=== PATIENT | male | born 1990 | race Caucasian/White ===

== ENCOUNTER → 2017-05-10 | Outpatient (CLI) | payer OTHER ==
--- NOTE | 2017-05-10 17:32 | REP ---
LEFT ANKLE, FOUR VIEWS: HISTORY: Sprain. There is no acute fracture or dislocation. The joint space is normal in appearance. IMPRESSION: There is no acute fracture or dislocation. Signed by Best Cramer MD 05/10/2017 05:38 P
== END ==
LOC: M WUC 17:09
PROVIDERS: ATTEND Physician Assistant
DX: S93.422A Sprain of deltoid ligament of left ankle, initial encounter (principal); X58.XXXA Exposure to other specified factors, initial encounter; Y92.89 Other specified places as the place of occurrence of the external cause; Y93.89 Activity, other specified; Y99.8 Other external cause status; R30.0 Dysuria

== ENCOUNTER → 2017-06-10 | Outpatient (REF) | payer OTHER | LOC: M SMT 13:12 | PROVIDERS: ATTEND Nurse Practitioner Women's Health | DX: R10.9 Unspecified abdominal pain (principal) ==

== ENCOUNTER → 2017-06-18 | Outpatient (CLI) | payer OTHER ==
--- NOTE | 2017-06-18 20:08 | REP ---
CT of the abdomen pelvis without IV or bowel contrast: There are no comparisons. The visualized lung hayden are unremarkable. The unenhanced hepatic parenchyma, gallbladder, pancreas and spleen are unremarkable. The adrenals are unremarkable. The unenhanced kidneys are unremarkable. There is no hydronephrosis. There are no renal calculi. There are no ureteral calculi. There are no bladder calculi. The abdominal aorta is unremarkable. The bowel and mesentery are unremarkable. Pelvis: The appendix is unremarkable except for appendicoliths. There is no adenopathy or ascites. The bladder is unremarkable. The pelvic bowel loops are unremarkable. Impression: Essentially negative CT study of the abdomen and pelvis without IV or bowel contrast. . There are appendicoliths, the appendix is otherwise unremarkable. Signed by Owen Keith MD 06/18/2017 07:59 P
== END ==
LOC: M RAD 18:12
PROVIDERS: ATTEND Nurse Practitioner Women's Health
DX: R10.9 Unspecified abdominal pain (principal)

== ENCOUNTER → 2017-07-26 | Outpatient (CLI) | payer OTHER ==
[~2017-07-26] MED LIST: CONRAY-43 43% 50ML VIAL (Q9960) As Ordered ONE; PROHANCE 279.3MG/ML 15ML VIAL (A9576) As Ordered ONE
--- NOTE | 2017-07-26 10:45 | REP ---
MR arthrography right shoulder: with pre and post intra-articular gadolinium enhanced saline injected imaging: History: Right anterior shoulder pain. No comparison imaging. Technique: The injection procedure is performed and dictated separately. Pre and post intra-articular gadolinium enhanced saline injected imaging is acquired. Imaging planes include axial, oblique coronal, oblique sagittal and ABER projection images. T1 T2-weighted scans are included with and without fat saturation. MRI findings: preinjection MR imaging of the right shoulder shows normal alignment of the glenohumeral and acromioclavicular articulations. Cortical and medullary bone signal intensity are felt to be normal. There is a small amount of subcortical cyst formation in the superolateral humeral head which can be a feature of impingement. Indeed the preinjection imaging shows some swelling and increased signal intensity in the supraspinatus tendon consistent with tendonitis tendinosis change. There is a linear pattern of increased T2 signal intensity in the distal infraspinatus tendon. Postinjection MR imaging shows good filling and enhancement of the right glenohumeral articulation. The anterior and the posterior labrum appear intact. No anterior labral tear is seen on ABER projection images. No loose body is appreciated. Oblique coronal T1-weighted scans show no evidence of enhancement within or beyond the supraspinatus tendon to suggest a complete rotator cuff tear. The biceps tendon is seen in the bony bicipital groove. Infraspinatus and subscapularis tendons are otherwise intact. Impression: Supraspinatus tendinosis change. Infraspinatus tendinosis and possible partial thickness linear cuff tear. Otherwise unremarkable MR arthrogram right shoulder. Signed by Arben Campbell MD 07/26/2017 01:12 P
--- NOTE | 2017-07-26 16:50 | REP ---
Procedure: Right shoulder arthrogram The procedure was performed under the direct supervision of Dr. Campbell. History: Right shoulder pain The benefits and risks including but not limited to pain, infection, bleeding and anaphylaxis were explained to the patient and informed consent was obtained. Technique: The right glenohumeral joint space was localized using fluoroscopic guidance. The skin was prepped and draped in a sterile fashion. 1% lidocaine was used as a local anesthetic. Using fluoroscopic guidance a 22 gauge spinal needle was inserted and advanced into the joint. 0.5 ml of Conray 43 was injected to verify placement. 11 ml of a solution containing 20 ml of sterile saline and 0.15 ml of ProHance was injected into the joint. The needle was removed and the patient was taken to MRI for postprocedural imaging. The the patient tolerated the procedure well and there were no immediate complications. less than 6 seconds of fluoro time was utilized for this procedure. Reviewed by JAYANT Barraza 07/26/2017 04:17 PSigned by Arben Campbell MD 07/26/2017 04:42 P
== END ==
LOC: M RADPRO 07:21
PROVIDERS: ATTEND Physician Assistant
DX: M25.511 Pain in right shoulder (principal)
CPT/HCPCS: 23350; 73040; 73223; A9576; Q9960